=== PATIENT | male | born 1985 | race Caucasian/White ===

== ENCOUNTER 2016-07-22 09:16 | Emergency (ER) | payer OTHER ==
[~2016-07-22] VITALS: Ht 177.8 cm; Wt 99.0 kg
[2016-07-22 09:24] VITALS: TEMP 36.7; Ht 177.8 cm; Wt 99.0 kg
[2016-07-22] MEDS ORDERED: ONDANSETRON INJ 2 MG/ML 2 ML VIAL IV STA (09:43)
[2016-07-22] MEDS ORDERED: KETOROLAC TROMETHAMINE 30 MG/ML VIAL IV STA (09:43)
[2016-07-22] MEDS ORDERED: MoRPHine SULFATE 4 MG/ML 1 ML CARP\\VIAL IV ONE (09:45)
[2016-07-22] MEDS ORDERED: SODIUM CHLORIDE 0.9% 1000ML 1,000 ML IV ONE (09:45)
[2016-07-22 10:23] LABS: URINE APPEARANCE CLEAR (CLEAR); URINE BILIRUBIN NEG (NEG); URINE COLOR YELLOW; URINE NITRITE NEG (NEG); URINE SPECIFIC GRAVITY 1.028 (1.000-1.030); UROBILINOGEN NEG (NEG); ZZUR CULT IF INDIC CLEAN CATCH NO
[2016-07-22 10:30] LABS: MANUAL MICROSCOPIC REQUIRED? NO; REVIEW REQ? NO
[2016-07-22 10:49] LABS: BASO % 0.4 %; BASO ABS # 0.04 K/uL (0-0.2); COMPLETE YES; EOS % 2.3 %; HEMATOCRIT 47.1 % (42-52); IG% 0.2 %; LYMPH % 27.1 %; LYMPH ABS # 2.65 K/uL (1.2-3.4); MEAN CELL VOLUME 87.2 fL (80-100); MEAN CORPUSCULAR HEMOGLOBIN 30.2 pg (25-34); MEAN CORPUSCULAR HGB CONC 34.6 g/dl (32-36); MEAN PLATELET VOLUME 9.2 fL (7.4-10.4); MONO % 10.4 %; NEUT % 59.6 %; PLATELET COUNT 218 K/uL (130-400); WHITE BLOOD COUNT 9.77 K/uL (4.8-10.8)
[2016-07-22 10:57] LABS: BENZODIAZEPINE, URINE POS (NEG); COCAINE,URINE NEG (NEG); PHENCYCLIDINE, URINE NEG (NEG)
[2016-07-22 11:35] LABS: ALB/GLOB RATIO 1.2 (0.9-2); BUN/CREATININE RATIO 17.5 (10-20); CALCIUM 9.3 mg/dl (8.5-10.1); CREATININE 1.1 mg/dl (0.60-1.40); MAGNESIUM 2.4 mg/dl (1.8-2.4); POTASSIUM 4.3 mmol/L (3.5-5.1)
--- NOTE | 2016-07-22 11:52 | DIAGNOSTIC IMAGING REPORT ---
CT SCAN OF THE ABDOMEN AND PELVIS WITHOUT IV CONTRAST CLINICAL HISTORY: Right flank pain. COMPARISON STUDY: No priors. TECHNIQUE: CT scan of the abdomen and pelvis is performed from the lung bases to the proximal femora. Images are reviewed in the axial, sagittal, and coronal planes. IV contrast was not administered for this examination. Automated dose control exposure was utilized. CT DOSE: 991.99 mGycm FINDINGS: Lung bases: The heart is normal in size and without pericardial effusion. Linear scarring versus atelectasis is present at the right lung base. No airspace consolidation is seen typical for pneumonia and there is no pleural effusion. Liver: The unenhanced liver is normal in size, contour, and attenuation. There is no intrahepatic biliary ductal dilatation. Gallbladder: Calcified gallstones are identified. There is no CT evidence of acute cholecystitis. Spleen: Normal in size and attenuation. Pancreas: Unremarkable. Adrenal glands: Unremarkable. Kidneys: The unenhanced kidneys are normal in size and without hydronephrosis. There are no renal calculi identified. There is no evidence of contour deforming renal mass lesion. Abdominal vasculature: The abdominal aorta is normal in course and caliber. Bowel: The small bowel and colon are normal in course and caliber. The appendix is well-visualized and normal. Peritoneum: There is no intraperitoneal free air or abdominal ascites. There is a small fat-containing umbilical hernia. Lymphadenopathy: None. Pelvic viscera: The bladder, prostate, and seminal vesicles are normal as imaged. Skeletal structures: No lytic or blastic lesions are seen. IMPRESSION: 1. There are no acute infectious or inflammatory findings in the abdomen or pelvis. 2. Cholelithiasis without CT evidence of acute cholecystitis. Electronically signed by: Moiz Maria M.D. 07/22/2016 11:50 AM Dictated Date/Time: 07/22/2016 11:47 AM
[2016-07-22 12:03] LABS: LYME DISEASE AB IGG NEG (NEG)
[2016-07-22 12:06] LABS: LYME DISEASE AB IGM EQUIVOCAL (NEG)
--- NOTE | 2016-07-22 13:17 | DIAGNOSTIC IMAGING REPORT ---
BILIARY ULTRASOUND CLINICAL HISTORY: Right upper quadrant flank pain COMPARISON STUDY: CT scan performed the same day FINDINGS: Pancreas appears sonographically normal as visualized. The liver appears sonographically normal. There is no right-sided hydronephrosis. There is no ductal dilatation. The common bile duct measures 5 mm. There is cholelithiasis. There is no gallbladder wall thickening. There is no pericholecystic fluid. The gallbladder is mildly distended. IMPRESSION: 1. Cholelithiasis with mild gallbladder distention 2. No pericholecystic fluid. No gallbladder wall thickening 3. No evidence of ductal dilatation. Electronically signed by: Hernesto Solis M.D. 07/22/2016 1:14 PM Dictated Date/Time: 07/22/2016 1:13 PM
[2016-07-22 15:02] VITALS: BP 136/105; PULSE 65; O2SAT 98
--- NOTE | 2016-07-22 15:54 | EMERGENCY ROOM VISIT NOTE ---
History First contact with patient: 09:34 Chief Complaint: RIB PAIN Stated Complaint: PAIN IN RIB CAGE, BACK, TESTICLES History of Present Illness The patient is a 30 year old male who presents to the Emergency Room with complaints of right flank and right upper quadrant abdominal. For the past one day. The patient is currently under the care of [facility] and states that he has a history of a bad gallbladder. He feels that he has a flare of these symptoms and rates his pain a 9/10. He has been nauseated without vomiting. No lower abdominal tenderness. He states that some of his tenderness will radiate to his testicle, but he does not report a history of stones. No fever or chills. Review of Systems More than 10 systems were reviewed and otherwise negative with the exception of history of present illness. Past Medical/Surgical History No chronic medical disease Family History No pertinent family history Social History Smoking Status: Former Smoker Housing Status: other Current/Historical Medications No Active Prescriptions or Reported Meds Allergies Coded Allergies: No Known Allergies (Unverified , 07/22/16) Physical Exam Vital Signs Date Time Temp Pulse Resp B/P Pulse Ox O2 Delivery O2 Flow Rate FiO2 07/22/16 15:02 65 136/105 98 Room Air 07/22/16 13:03 72 17 130/64 97 07/22/16 11:38 60 147/90 97 Room Air 07/22/16 09:24 36.7 59 18 148/101 97 Room Air Pain Rating (0-10): 2.0 Physical Exam VITALS: Vitals are noted on the nurse's note and reviewed by myself. Vital signs stable. GENERAL: Well-developed, well-nourished, white male who is in moderate discomfort secondary to stated complaint.. HEAD: Normocephalic atraumatic. HEART: Regular rate and rhythm without murmurs gallops or rubs. LUNGS: Clear to auscultation bilaterally without wheezes, rales or rhonchi. No retractions or accessory muscle use. ABDOMEN: Positive normal bowel sounds x 4. Soft with right upper quadrant and right flank tenderness. No lower abdominal tenderness. No rebound or guarding. MUSCULOSKELETAL: No muscle atrophy, erythema, or edema noted. Full range of motion without joint tenderness in all extremities. Medical Decision & Procedures ER Provider Diagnostic Interpretation: BILIARY ULTRASOUND CLINICAL HISTORY: Right upper quadrant flank pain COMPARISON STUDY: CT scan performed the same day FINDINGS: Pancreas appears sonographically normal as visualized. The liver appears sonographically normal. There is no right-sided hydronephrosis. There is no ductal dilatation. The common bile duct measures 5 mm. There is cholelithiasis. There is no gallbladder wall thickening. There is no pericholecystic fluid. The gallbladder is mildly distended. IMPRESSION: 1. Cholelithiasis with mild gallbladder distention 2. No pericholecystic fluid. No gallbladder wall thickening 3. No evidence of ductal dilatation. CT SCAN OF THE ABDOMEN AND PELVIS WITHOUT IV CONTRAST CLINICAL HISTORY: Right flank pain. COMPARISON STUDY: No priors. TECHNIQUE: CT scan of the abdomen and pelvis is performed from the lung bases to the proximal femora. Images are reviewed in the axial, sagittal, and coronal planes. IV contrast was not administered for this examination. Automated dose control exposure was utilized. CT DOSE: 991.99 mGycm FINDINGS: Lung bases: The heart is normal in size and without pericardial effusion. Linear scarring versus atelectasis is present at the right lung base. No airspace consolidation is seen typical for pneumonia and there is no pleural effusion. Liver: The unenhanced liver is normal in size, contour, and attenuation. There is no intrahepatic biliary ductal dilatation. Gallbladder: Calcified gallstones are identified. There is no CT evidence of acute cholecystitis. Spleen: Normal in size and attenuation. Pancreas: Unremarkable. Adrenal glands: Unremarkable. Kidneys: The unenhanced kidneys are normal in size and without hydronephrosis. There are no renal calculi identified. There is no evidence of contour deforming renal mass lesion. Abdominal vasculature: The abdominal aorta is normal in course and caliber. Bowel: The small bowel and colon are normal in course and caliber. The appendix is well-visualized and normal. Peritoneum: There is no intraperitoneal free air or abdominal ascites. There is a small fat-containing umbilical hernia. Lymphadenopathy: None. Pelvic viscera: The bladder, prostate, and seminal vesicles are normal as imaged. Skeletal structures: No lytic or blastic lesions are seen. IMPRESSION: 1. There are no acute infectious or inflammatory findings in the abdomen or pelvis. 2. Cholelithiasis without CT evidence of acute cholecystitis. Laboratory Results 07/22/16 10:31 Red Blood Count 5.40, Mean Corpuscular Volume 87.2, Mean Corpuscular Hemoglobin 30.2, Mean Corpuscular Hemoglobin Concent 34.6, Mean Platelet Volume 9.2, Neutrophils (%) (Auto) 59.6, Lymphocytes (%) (Auto) 27.1, Monocytes (%) (Auto) 10.4, Eosinophils (%) (Auto) 2.3, Basophils (%) (Auto) 0.4, Neutrophils # (Auto ) 5.82, Lymphocytes # (Auto) 2.65, Monocytes # (Auto) 1.02, Eosinophils # (Auto ) 0.22, Basophils # (Auto) 0.04 07/22/16 10:31 Test 07/22/16 09:40 07/22/16 10:31 Urine Color YELLOW Urine Appearance CLEAR (CLEAR) Urine pH 5.0 (4.5-7.5) Urine Specific [place] 1.028 (1.000-1.030) Urine Protein NEG (NEG) Urine Glucose (UA) NEG (NEG) Urine Ketones NEG (NEG) Urine Occult Blood NEG (NEG) Urine Nitrite NEG (NEG) Urine Bilirubin NEG (NEG) Urine Urobilinogen NEG (NEG) Urine Leukocyte Esterase NEG (NEG) Urine Opiates Screen NEG (NEG) Urine Methadone, Qualitative NEG (NEG) Urine Barbiturates NEG (NEG) Urine Phencyclidine (PCP) Level NEG (NEG) Ur Amphetamine/Methamphetamine NEG (NEG) MDMA (Ecstasy) Screen NEG (NEG) Urine Benzodiazepines Screen POS (NEG) Urine Cocaine Metabolite NEG (NEG) Urine Marijuana (THC) NEG (NEG) White Blood Count 9.77 K/uL (4.8-10.8) Red Blood Count 5.40 M/uL (4.7-6.1) Hemoglobin 16.3 g/dL (14.0-18.0) Hematocrit 47.1 % (42-52) Mean Corpuscular Volume 87.2 fL (80-100) Mean Corpuscular Hemoglobin 30.2 pg (25-34) Mean Corpuscular Hemoglobin Concent 34.6 g/dl (32-36) Platelet Count 218 K/uL (130-400) Mean Platelet Volume 9.2 fL (7.4-10.4) Neutrophils (%) (Auto) 59.6 % Lymphocytes (%) (Auto) 27.1 % Monocytes (%) (Auto) 10.4 % Eosinophils (%) (Auto) 2.3 % Basophils (%) (Auto) 0.4 % Neutrophils # (Auto) 5.82 K/uL (1.4-6.5) Lymphocytes # (Auto) 2.65 K/uL (1.2-3.4) Monocytes # (Auto) 1.02 K/uL (0.11-0.59) Eosinophils # (Auto) 0.22 K/uL (0-0.5) Basophils # (Auto) 0.04 K/uL (0-0.2) RDW Standard Deviation 42.0 fL (36.4-46.3) RDW Coefficient of Variation 13.3 % (11.5-14.5) Immature Granulocyte % (Auto) 0.2 % Immature Granulocyte # (Auto) 0.02 K/uL (0.00-0.02) Anion Gap 8.0 mmol/L (3-11) Est Creatinine Clear Calc Drug Dose 116.9 ml/min Estimated GFR () 104.6 Estimated GFR (Non- 90.2 BUN/Creatinine Ratio 17.5 (10-20) Calcium Level 9.3 mg/dl (8.5-10.1) Magnesium Level 2.4 mg/dl (1.8-2.4) Total Bilirubin 0.4 mg/dl (0.2-1) Aspartate Amino Transf (AST/SGOT) 33 U/L (15-37) Alanine Aminotransferase (ALT/SGPT) 58 U/L (12-78) Alkaline Phosphatase 91 U/L (45-117) Total Protein 8.3 gm/dl (6.4-8.2) Albumin 4.5 gm/dl (3.4-5.0) Globulin 3.8 gm/dl (2.5-4.0) Albumin/Globulin Ratio 1.2 (0.9-2) Chemistry Specimen Hemolysis Lyme Disease IgG Antibody NEG (NEG) Medications Administered Medications (Trade) Dose Ordered Sig/Fernie Route Start Time Stop Time Status Last Admin Dose Admin Sodium Chloride (Nss 1000ml) 1,000 ml @ 999 mls/hr Q1H1M ONCE IV 07/22/16 09:45 07/22/16 10:45 DC 07/22/16 11:02 999 MLS/HR Ketorolac Tromethamine (Toradol Inj) 30 mg NOW STAT IV 07/22/16 09:43 07/22/16 09:44 DC 07/22/16 11:02 30 MG Morphine Sulfate (MoRPHine SULFATE INJ) 4 mg NOW ONCE IV 07/22/16 09:45 07/22/16 09:46 DC 07/22/16 11:03 4 MG Ondansetron HCl (Zofran Inj) 4 mg NOW STAT IV 07/22/16 09:43 07/22/16 09:44 DC 07/22/16 11:02 4 MG ED Course Physical exam and history were performed. Nursing notes and EMR were reviewed. Patient appears to have right upper quadrant/right flank pain for the past one day. He is currently incarcerated in [facility]. He does appear uncomfortable on exam. IV access was established and labs were obtained. The patient was hydrated and medicated as above. Because of his symptoms I was concerned for possible kidney stone versus biliary issue. CT scan ultrasound were performed. The patient blood work is as above and was reviewed. He does not have a significantly elevated white blood count, gross anemia, bandemia, or significant electrolyte imbalance. Lipase and transaminases are nondiagnostic. Urine is without evidence of infection, hematuria, or other significant findings. The patient CT scan does not show an acute abdominal process. Ultrasound does show gallstones but no acute cholecystitis. On reevaluation the patient felt much better. Clinically I suspect that his symptoms are related to biliary colic. He does not appear to have acute cholecystitis. He may need to follow with an outpatient surgeon for further care. He should otherwise practice a bland diet. The patient was otherwise invited back to ER with any new, worsening, or concerning symptoms. He was discharged under the care of corrections officers back to [facility]. The chart was completed utilizing [employer] Speech Voice Recognition Software. Grammatical errors, random word insertions, pronoun errors, and incomplete sentences are an occasional consequence of this system due to software limitations, ambient noise, and hardware issues. Any formal questions or concerns about the content, text, or information contained within the body of this dictation should be directly addressed to the provider for clarification. . Medical Decision Differential diagnosis: Etiologies such as appendicitis, diverticulitis, PUD, biliary pathology, UTI, pancreatitis, obstruction, mesenteric ischemia, aortic pathology, infections, inflammatory bowel disease, renal colic, as well as others were entertained. Impression Primary Impression: Biliary colic Departure Information Dispostion Home / Self-Care Condition GOOD Prescriptions No Active Prescriptions or Reported Meds Forms HOME CARE DOCUMENTATION FORM, IMPORTANT VISIT INFORMATION Patient Instructions My [facility] Additional Instructions You were seen and evaluated today on an emergency basis only. This is not a substitute for, or an effort to provide, complete comprehensive medical care. It is not possible to recognize and treat all injuries or illnesses in a single emergency department visit. For this reason it is recommended that you followup with the [facility] for ongoing care and evaluation. For baseline pain relief you may alternate ibuprofen and acetaminophen every 4 hours for pain control. Take 600 mg ibuprofen (Advil) and then 4 hours later take 1000 mg acetaminophen (Tylenol). Do not take more than 3000 mg acetaminophen in a single day. Eat a bland diet for the next 2-3 days. Spicy and fatty foods will worsen your symptoms. You are welcome to return to the emergency department anytime with new, worsening, or concerning symptoms.
[2016-07-24 11:38] LABS: HYDROXYETHYLFLURAZEPAM CONF NEGATIVE NG/ML (CUTOFF=50); HYDROXYMIDAZOLAM NEGATIVE NG/ML (CUTOFF=50); HYDROXYTRIAZOLAM CONF NEGATIVE NG/ML (CUTOFF=50); TEMAZEPAM CONF NEGATIVE NG/ML (CUTOFF=50)
[2016-07-28 08:54] LABS: 18KDIGG BAND REACTIVE (NONREACTIVE); 23KDIGG BAND NONREACTIVE (NONREACTIVE); 23KDIGM BAND REACTIVE (NONREACTIVE); 28KDIGG BAND NONREACTIVE (NONREACTIVE); 30KDIGG BAND NONREACTIVE (NONREACTIVE); 39KDIGG BAND REACTIVE (NONREACTIVE); 39KDIGM BAND NONREACTIVE (NONREACTIVE); 41KDIGG BAND REACTIVE (NONREACTIVE); 41KDIGM BAND REACTIVE (NONREACTIVE); 45KDIGG BAND NONREACTIVE (NONREACTIVE); 58KDIGG BAND REACTIVE (NONREACTIVE); 66KDIGG BAND REACTIVE (NONREACTIVE); 93KDIGG BAND NONREACTIVE (NONREACTIVE)
== END 2016-07-22 15:03 | disposition home or self-care (01) ==
LOC: C.EDB 09:20
DX: K80.50 Calculus of bile duct without cholangitis or cholecystitis without obstruction (principal)